=== PATIENT | male | born 1995 | race American Indian/Alaskan Native ===

== ENCOUNTER 2018-06-29 13:09 | Emergency (ER) | payer OTHER ==
[2018-06-29] MEDS ORDERED: BOOSTRIX IM ONE ×2 (13:20→15:58)
--- NOTE | 2018-06-29 13:20 | Emergency Department Report ---
Blank Doc - Documentation Documentation: This is a 22-year-old male that presents with left middle finger lac that occu rred today. Denies being UTD with tetanus. This initial assessment/diagnostic orders/clinical plan/treatment(s) is/are subject to change based on patient's health status, clinical progression and re- assessment by fellow clinical providers in the ED. Further treatment and workup at subsequent clinical providers discretion. Patient/guardians urged not to elope from the ED as their condition may be serious if not clinically assessed and managed. Initial orders include: 1- Patient sent to [facility] for further evaluation and treatment 2-tetanus ordered
[2018-06-29 16:03] VITALS: BP 138/86
--- NOTE | 2018-06-29 17:08 | Emergency Department Report ---
ED Laceration HPI - HPI Chief Complaint: Wound/Laceration Stated Complaint: LFT FINGER CUT/PAIN Time Seen by Provider: 06/29/18 13:18 Occurred When: Today Location: Upper Extremity Severity: mild Tetanus Status: Not up to Date Laceration Symptoms: Yes Pain, No Foreign Body Sensation, No Numbness, No Weakness Other History: This is a 22-year-old male who presents with 2 lacerations to the third distal finger. 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 Patient states he applied pressure for several minutes to 1 hour and unable to control bleeding. He is unsure of last tetanus bike sitting. Denies numbness or tingling or swelling. ED Review of Systems ROS: Stated complaint: LFT FINGER CUT/PAIN Other details as noted in HPI Constitutional: denies: chills, fever Respiratory: denies: cough, shortness of breath, wheezing Cardiovascular: denies: chest pain, palpitations Gastrointestinal: denies: abdominal pain, nausea, diarrhea Skin: lesions (laceration 3rd distal finger). denies: rash Neurological: denies: headache, weakness, paresthesias Psychiatric: denies: anxiety, depression ED Past Medical Hx - Social History Smoking Status: Never Smoker Substance Use Type: None - Medications Home Medications: Home Medications Medication Instructions Recorded Confirmed Last Taken Type Ibuprofen [Motrin 600 MG tab] 600 mg PO Q8H PRN #12 tablet 06/29/18 Unknown Rx Laceration Physical Exam - Exam General: Vital signs noted. No distress. Alert and acting appropriately. Wound Length (cm): 1 Laceration Location: Upper Extremity (2 lacerations, #1 1/2 cm to distal valor of 3rd phalanx into dermis, full range of motion, neurologically intact. #2, 1 cm irregular laceration into the volar dermis of proximal 3rd phalanx, tender FROM, moderate bleeding, no visualized tendon or vessel, neurologically intact) Laceration Exam: Yes Normal Distal CMS, No Foreign Body, No Exposed Tendon, Vessel, or Nerve, No Tendon Injury ED Course Vital Signs 06/29/18 06/29/18 13:20 16:01 Temperature 98.7 F 98.2 F Pulse Rate 74 69 Respiratory 16 16 Rate Blood Pressure 127/80 138/86 [Left] O2 Sat by Pulse 98 96 Oximetry ED Medical Decision Making - Medical Decision Making This is a 22 y.o. male presents with two lacerations to left 3rd digit. Patient examined by me. Patient is non-toxic appearing and stable. Laceration closed with sutures, please review note. Patient received tetanus vaccine 3 years ago. Discharged home for outpatient treatment with ibuprofen for pain. Discussed ER care plan with patient. Patient agreed with plan. F/U with PCP. Critical care attestation.: If time is entered above; I have spent that time in minutes in the direct care of this critically ill patient, excluding procedure time. ED Disposition Clinical Impression: Laceration of finger Qualifiers: Encounter type: initial encounter Finger: middle finger Damage to nail status: without damage Foreign body presence: without foreign body Laterality: left Qualified Code(s): S61.213A - Laceration without foreign body of left middle finger without damage to nail, initial encounter Disposition: TO HOME OR SELFCARE Is pt being admited?: No Does the pt Need Aspirin: No Condition: Stable Instructions: Suture Care (ED), Laceration (ED) Additional Instructions: Take antibiotics as prescribed for the full course. Keep wound dry and clean for 48 hours. Avoid putting to much tension on wound site. Prop arm up on pillows to decrease swelling. Follow up with Primary Care Provider in 2-3 days. Have sutures removed in 7 days by primary care provider or in ER. Return to ER if red, swollen, foul discharge, or fever. Prescriptions: Ibuprofen [Motrin 600 MG tab] 600 mg PO Q8H PRN #12 tablet PRN Reason: Pain Referrals: [facility] [Other] - 3-5 Days [facility] [Outside] - 3-5 Days [facility] [Outside] - 3-5 Days Forms: Work/School Release Form(ED) Time of Disposition: 17:11
[2018-06-29] MEDS ORDERED: XYLOCAINE 1% MPF 5 mL ONE (17:10)
[2018-06-29] MEDS ORDERED: XYLOCAINE 1% MPF 5 mL INFILTRATI ONE (17:37)
== END 2018-06-29 18:16 | disposition home or self-care (01) ==
LOC: ED 13:09
DX: S61.213A Laceration without foreign body of left middle finger without damage to nail, initial encounter (principal); W45.8XXA Other foreign body or object entering through skin, initial encounter; Y93.89 Activity, other specified; Y92.89 Other specified places as the place of occurrence of the external cause; Y99.8 Other external cause status
CPT/HCPCS: 90715; 99282